=== PATIENT | female | born 1965 | race Two or more races ===

== ENCOUNTER 2016-11-10 14:19 | Emergency (ER) | payer MEDICAID ==
[~2016-11-10] VITALS: Ht 162.6 cm; Wt 60.0 kg
[~2016-11-10 14:19] MED LIST: CHOL500010 PO; OXYB5TAB11 PO
[2016-11-10 14:48] VITALS: BP 125/74
== END 2016-11-10 15:54 | disposition left against medical advice (07) ==
LOC: ER 15:11
DX: Z53.21 Procedure and treatment not carried out due to patient leaving prior to being seen by health care provider (principal)

== ENCOUNTER 2017-06-29 11:39 | Emergency (ER) | payer MEDICAID ==
[~2017-06-29] VITALS: Ht 175.3 cm; Wt 68.0 kg
[2017-06-29] MEDS ORDERED: ACETAMINOPHEN 325MG TABLET PO ONE (15:15)
[2017-06-29 16:56] VITALS: BP 125/66
== END 2017-06-29 17:00 | disposition home or self-care (01) ==
LOC: ER 13:58
DX: M25.462 Effusion, left knee (principal); G35 Multiple sclerosis; W01.0XXA Fall on same level from slipping, tripping and stumbling without subsequent striking against object, initial encounter; Y93.E1 Activity, personal bathing and showering; Z88.6 Allergy status to analgesic agent
CPT/HCPCS: 73562; 99284; L1830